=== PATIENT | female | born 1980 | race Caucasian/White ===

== ENCOUNTER 2017-02-24 16:15 | Emergency (ER) | payer OTHER ==
[~2017-02-24] VITALS: Ht 162.6 cm; Wt 117.9 kg
[2017-02-24 16:24] VITALS: BP 112/81
--- NOTE | 2017-02-24 16:34 | ED GI/GU/ABDOMINAL COMPLAINT ---
History of Present Illness General Chief Complaint: Female Urogenital Problems Stated Complaint: [facility] Source: patient Exam Limitations: no limitations Vital Signs & Intake/Output Vital Signs & Intake/Output Vital Signs Date Time Temp Pulse Resp B/P Pulse O2 O2 Flow FiO2 Ox Delivery Rate 02/24 1624 98.3 91 15 112/81 100 Room Air Allergies Coded Allergies: Sulfa (Sulfonamide Antibiotics) (Severe, ITCHING 02/24/17) codeine (Severe, ITCHING 02/24/17) Penicillins (HIVES 02/24/17) Reconcile Medications Aspirin (Ecotrin*) 81 MG TABLET.DR 1 TAB PO DAILY HEART/BLOOD (Reported) Cinnamon Bark (Cinnamon) (Unknown Strength) CAPSULE (Unknown Dose) PO DAILY SUPPLEMENT (Reported) Cranberry Extract (Cranberry) (Unknown Strength) CAPSULE (Unknown Dose) PO DAILY SUPPLEMENT (Reported) Ergocalciferol (Vitamin D2) (Vitamin D2) 50,000 UNIT CAPSULE 1 CAP PO QTHURS SUPPLEMENT (Reported) Escitalopram Oxalate (Unknown Strength) TABLET (Unknown Dose) UNKNOWN ( Reported) Lisinopril/Hydrochlorothiazide (Lisinopril-Hctz 20-12.5 MG Tab) 20 MG-12.5 MG TABLET 1 TAB PO DAILY BP (Reported) Pravastatin Sodium 80 MG TABLET 1 TAB PO DAILY CHOLESTEROL (Reported) Triage Note: PT SIB [facility] FOR R/O [facility]OPIC, REPORTING THEY HAVE BEEN TRENDING HER HCG LEVELS SINCE +PREG TEST ON 02/12 "AND THEY'VE BEEN ALL OVER THE PLACE" US ON 02/20 "DIDN'T SHOW ANYTHING". PT DENIES ANY PAIN, REPORTING SPOTTING FOR LAST SEVERAL DAYS. HCG LEVELS: 02/20 92, 02/21 95, 02/22 77, 02/24 92. Triage Nurses Notes Reviewed? yes ? n Is pt currently ? No HPI: 36-year-old female arrived to triage to room 5 for evaluation of possible ectopic . Patient has a history of 3 surgical abortions and one medical most recent October 2016. Since using the morning after pill her menses have been very abnormal. She recently had unprotected sex and was concerned about so she took a test on Sunday which was negative. [facility] which was negative also via urine. She had a blood test that was positive at 92. Repeat hCG 76, then again back up into the 90s. She was sent in for clarification of positive and or ectopic . She did have an outpatient ultrasound which was negative and nothing was seen. She is unknown when her last menstrual cycle was and she cannot think of the exact date that she had intercourse. He denies any abdominal pain, nausea, vomiting, diarrhea. She denies any fever or chills. She denies any chest pain or shortness of breath. She started with vaginal bleeding on Sunday of this past week which was having with no clots. She now has brown spotting like she had her menses. She was diagnosed with the TIA in October and was taken off control pills at that time. Past History Travel History Traveled to [place] past 21 day No Medical History Any Pertinent Medical History? see below for history Neurological: TIA EENT: NONE Cardiovascular: hypertension Respiratory: NONE Gastrointestinal: NONE Hepatic: NONE Renal: NONE Musculoskeletal: NONE Psychiatric: NONE Endocrine: NONE Blood Disorders: NONE Cancer(s): NONE MONITOR TECHNICIAN/Reproductive: NONE Surgical History Surgical History: 3 surgical abortions 1 medical Psychosocial History What is your primary language Turkmen Tobacco Use: Never used ETOH Use: denies use Illicit Drug Use: denies illicit drug use Family History Hx Contributory? No Review of Systems Review of Systems Constitutional: Reports: no symptoms. EENTM: Reports: no symptoms. Respiratory: Reports: no symptoms. Cardiovascular: Reports: no symptoms. GI: Reports: no symptoms. Genitourinary: Reports: no symptoms. Musculoskeletal: Reports: no symptoms. Skin: Reports: no symptoms. Neurological/Psychological: Reports: no symptoms. Hematologic/Endocrine: Reports: no symptoms. Immunologic/Allergic: Reports: no symptoms. All Other Systems: Reviewed and Negative Physical Exam Physical Exam General Appearance: well developed/nourished, no apparent distress, alert, awake , comfortable Head: atraumatic, normal appearance Eyes: Bilateral: normal appearance, PERRL, EOMI. Respiratory: normal breath sounds, chest non-tender, no respiratory distress, quiet respiration Cardiovascular: regular rate/rhythm, normal peripheral pulses Gastrointestinal: normal bowel sounds, soft, non-tender Back: normal inspection, normal range of motion Extremities: normal range of motion, pelvis stable Neurologic/Psych: no motor/sensory deficits, awake, alert, oriented x 3, normal gait, normal mood/affect Skin: intact, normal color, warm/dry Core Measures ACS in differential dx? No Severe Sepsis Present: No Septic Shock Present: No Progress Differential Diagnosis: ectopic , intrauterine , miscarriage Plan of Care: Orders Procedure Date/time Status URINALYSIS 02/24 163 Active HUMAN BETA HCG TITRE 02/24 163 Complete COMPREHENSIVE METABOLIC PANEL 02/24 163 Complete CBC WITHOUT DIFFERENTIAL 02/24 163 Complete TYPE & SCREEN (NOT X-MATCH) 02/24 163 Active Laboratory Tests 02/24/17 1657: Anion Gap 13, Estimated GFR > 60, BUN/Creatinine Ratio 22.5, Glucose 98, Calcium 9.9, Total Bilirubin 0.8, AST 29, ALT 49, Alkaline Phosphatase 70, Total Protein 7.8, Albumin 4.5, Globulin 3.3, Albumin/Globulin Ratio 1.4, Beta HCG, Quant 76.5 , CBC w Diff NO MAN DIFF REQ, RBC 5.19, MCV 83.8, MCH 27.8, RDW 13.4, MPV 8.1, Gran % 58.5, Lymphocytes % 31.5, Monocytes % 4.8, Eosinophils % 4.1, Basophils % 1.1, Absolute Granulocytes 7.2 H, Absolute Lymphocytes 3.9 H, Absolute Monocytes 0.6, Absolute Eosinophils 0.5, Absolute Basophils 0.1, PUBS MCHC 33.2 Initial ED EKG: none Comments: PATIENT: MICHELLE SOLO PRESENT AGE: 36 PATIENT ACCOUNT NO: [id number] : 79 LOCATION: [facility] ORDERING PHYSICIAN: LUCIA AVINA MD SERVICE DATE: 02/24/17 EXAM TYPE: US - US TRANSVAG EXAMINATION: Ultrasound Pelvis Complete CLINICAL INFORMATION: Vaginal bleeding, abdominal pain. Evaluate for ectopic . Beta hCG 92. LMP 02/12/2017. COMPARISON: None. TECHNIQUE: Real-time sonographic imaging of the uterus and bilateral adnexa via transabdominal and transvaginal approach. FINDINGS: The uterus is anteverted and measures 7.4 x 3.4 x 4.1 cm in sagittal, AP and transverse dimensions respectively. The cervical length is 3.3 cm. The endometrial stripe measures 0.3 cm in thickness. No intrauterine or extrauterine gestational sac is identified. The right ovary is not visualized. The left ovary measures 2.3 x 1.5 x 1.4 cm, corresponding to a volume of 2.5 mL. No adnexal masses are noted. Minimal free pelvic fluid. IMPRESSION: No visible intrauterine or extrauterine gestational sac. Recommend correlation with serial beta hCG levels. If serial beta hCG levels continue to trend upwards, recommend short interval follow-up pelvic ultrasound to assess for location. DICTATED BY: DANAY JEFFERSON MD DATE/TIME DICTATED:02/24/171708 TALENT ACQUISITION PROJECT MANAGER:KIMBERLY DATE/TIME TRANSCRIBED:02/24/171708 CONFIDENTIAL, DO NOT COPY WITHOUT APPROPRIATE AUTHORIZATION. <Electronically signed in Other Vendor System> SIGNED BY: DANAY JEFFERSON MD 02/24/17 1725 5:33 PM explained ultrasound results to the patient. Waiting for blood work Explain rest of blood work to patient and she will be discharged home to follow [facility] at [facility]. She denies any abdominal pain at this time. She feels good and wants to go home. Departure Departure Time of Disposition: 1928 Disposition: HOME OR SELF CARE Condition: Stable Clinical Impression Primary Impression: Threatened Referrals: BASHIR JAMES MD (PCP/Family) Additional Instructions: Please follow-up with your [facility] or [facility] has already scheduled. Please bring blood work and ultrasound results Departure Forms: Customer Survey General Discharge Information
[2017-02-24] MEDS ORDERED: ASPIRIN EC81 M1 PO (16:52)
[2017-02-24] MEDS ORDERED: PRAVASTATIN SOD80 M2 PO (16:52)
[2017-02-24] MEDS ORDERED: LISINOPRIL-HCT1 EACH PO (16:52)
[2017-02-24] MEDS ORDERED: VITAMIN D250000 UNIT PO (16:52)
[2017-02-24] MEDS ORDERED: CINNAMON500 M1 PO (16:53)
[2017-02-24] MEDS ORDERED: CRANBERRY425 MG PO (16:53)
[2017-02-24] MEDS ORDERED: ESCITALOPRAM OX10 MG (16:53)
[2017-02-24 17:04] LABS: ABSOLUTE BASOPHIL COUNT 0.1 /CUMM (0.0-0.2); ABSOLUTE EOSINOPHIL COUNT 0.5 /CUMM (0.0-0.7); ABSOLUTE GRANULOCYTE CT 7.2 /CUMM (1.4-6.5); ABSOLUTE LYMPH COUNT 3.9 /CUMM (1.2-3.4); ABSOLUTE MONOCYTE COUNT 0.6 /CUMM (0.10-0.60); BASOPHIL % 1.1 % (0.0-2.0); EOSINOPHIL % 4.1 % (0-5); HEMATOCRIT 43.5 % (37-47); MEAN CORPUSCULAR HGB 27.8 PG (27.0-31.0); MEAN CORPUSCULAR HGB CONC 33.2 G/DL (33.0-37.0); MEAN CORPUSCULAR VOLUME 83.8 FL (81.0-99.0); MEAN PLATELET VOLUME 8.1 FL (7.4-10.4); PLATELET COUNT 267 /CUMM (130-400); RBC DISTRIBUTION WIDTH 13.4 % (11.5-14.5); RED BLOOD CELL CT 5.19 /CUMM (4.20-5.40); WHITE BLOOD CELL COUNT 12.3 /CUMM (4.8-10.8)
[2017-02-24 17:05] LABS: GRANULOCYTE % 58.5 % (42.2-75.2)
--- NOTE | 2017-02-24 17:25 | ULTRASOUND REPORT ---
EXAMINATION: Ultrasound Pelvis Complete CLINICAL INFORMATION: Vaginal bleeding, abdominal pain. Evaluate for ectopic . Beta hCG 92. LMP 02/12/2017. COMPARISON: None. TECHNIQUE: Real-time sonographic imaging of the uterus and bilateral adnexa via transabdominal and transvaginal approach. FINDINGS: The uterus is anteverted and measures 7.4 x 3.4 x 4.1 cm in sagittal, AP and transverse dimensions respectively. The cervical length is 3.3 cm. The endometrial stripe measures 0.3 cm in thickness. No intrauterine or extrauterine gestational sac is identified. The right ovary is not visualized. The left ovary measures 2.3 x 1.5 x 1.4 cm, corresponding to a volume of 2.5 mL. No adnexal masses are noted. Minimal free pelvic fluid. IMPRESSION: No visible intrauterine or extrauterine gestational sac. Recommend correlation with serial beta hCG levels. If serial beta hCG levels continue to trend upwards, recommend short interval follow-up pelvic ultrasound to assess for location.
== END 2017-02-24 19:42 ==
LOC: ERH 16:15
PROVIDERS: Nurse Practitioner Family
DX: O20.0 Threatened abortion (principal)
CPT/HCPCS: 76817